=== PATIENT | male | born 1960 | race Caucasian/White ===

== ENCOUNTER 2020-08-16 19:00 | Emergency (ER) | payer OTHER, SELFPAY ==
[2020-08-16 19:06] VITALS: BP 138/111; PULSE 94; RESP 16; TEMP 37.3; O2SAT 98
--- NOTE | 2020-08-16 19:11 | ED.ALLEREA ---
HPI - Allergic Reaction General Chief complaint: Allergic Reaction Stated complaint: Alergic Reaction Time Seen by Provider: 08/16/20 19:11 Source: patient Mode of arrival: ambulatory Limitations: no limitations History of Present Illness HPI narrative: Kyle Jean is a 59 yo male with a PMH of heavy smoking, myalgias, who comes to [facility] with allergic reaction to new drugs given at her PCP office today he was given both meloxicam and Flexeril for muscle pain that he took around 2 PM and then laid down for a nap in the 6:00 when he woke up his lips were swollen. He has never had allergic reaction any drug is unsure if he is ever taken steroids before but will treat him with traditional medication for an allergic reaction Related Data Allergies Allergy/AdvReac Type Severity Reaction Status Date / Time No Known Allergies Allergy Verified 08/16/20 12:30 Review of Systems Review of Systems: Narrative: CONSTITUTIONAL: Denies fever, chills, sweats. EYES: Denies visual changes, redness, discharge. ENT: Denies rhinorrhea, congestion, sore throat, otalgia. CARDIOVASCULAR: Denies chest pain, palpitations, edema. RESPIRATORY: Denies dyspnea, wheezing, cough-allergic reaction to new prescriptions GASTROINTESTINAL: Denies abdominal pain, nausea, vomiting, diarrhea. GENITOURINARY: Denies dysuria, hematuria, abnormal discharge SKIN: Denies rash or itching. NEUROLOGIC: Denies numbness, or focal weakness. PSYCHIATRIC: Denies anxiety or depression. REPLACED BY [facility] Past Medical History Medical History Anxiety BMI 31.0-31.9,adult Chronic left shoulder pain Degenerative cervical disc Dietary counseling and surveillance (04/06/17) Encounter for screening for lipoid disorders Encounter for screening for malignant neoplasm of prostate Encounter for smoking cessation counseling Other chronic pain Pain of both shoulder joints Primary osteoarthritis of left knee Screening for colon cancer Screening for diabetes mellitus Screening for thyroid disorder Family History Family History Father Family history of malignant neoplasm Mother Sibling No problems noted. Social History Social History Tobacco type: cigarettes Alcohol intake: former Substance use: never Substance use type: does not use Additional occupation/education comments: [employer] Gender identity (if verbalized by the patient): Male Comments At time of signature, I agree with nursing past medical, surgical, social and family history. There is no relevant family history pertinent to the presenting complaint. Blood pressure is elevated probably due to situation that brought him to [facility], he saw his PCP today and will return tomorrow Exam Narrative: Exam Narrative: GENERAL: This is a well-nourished, well-developed patient, in mild distress. HEAD: normocephalic, atraumatic. EYES:Sclera clear/white. Vision is grossly intact. EARS: External ears normal, Hearing grossly intact. NOSE: External nose normal without nasal discharge, nares without redness, no rhinorrhea. Mouth-lip swollen. Posterior pharynx normal with no tongue swelling THROAT: Mucous membranes moist, NECK: Neck supple, non-tender CARDIOVASCULAR: Regular rate and rhythm without murmurs, gallops, or rubs. RESPIRATORY: Clear to auscultation. Breath sounds equal bilaterally. No wheezes, rales, or rhonchi. GASTROINTESTINAL: Abdomen soft, SKIN: warm, intact with no suspicious lesions or rash, good texture and turgor. NEURO: awake, alert, and oriented to person, place and time. There were no obvious focal neurologic abnormalities. Steady gait EXTREMITIES: Normal range of motion. BACK: Nontender without deformity Course Course Emergency Course: Patient comes to [facility] with allergic reaction to new drug scr
[2020-08-16] MEDS: FAMOTIDINE 20 MG TABLET PO (19:25)
[2020-08-16] MEDS: methylPREDNISolone SOD SUCC 125 MG VIAL IM (19:25)
== END 2020-08-16 19:40 | disposition home or self-care (01) ==
PROVIDERS: Emergency Provider Nurse Practitioner; PCP Family Medicine
DX: R22.0 Localized swelling, mass and lump, head (principal); T50.905A Adverse effect of unspecified drugs, medicaments and biological substances, initial encounter; Z87.891 Personal history of nicotine dependence; M17.12 Unilateral primary osteoarthritis, left knee
CPT/HCPCS: 96372; 99212; A9270; G0463; J2930

== ENCOUNTER 2020-11-22 15:32 | Outpatient (CLI) | payer OTHER, SELFPAY ==
--- NOTE | ~2020-11-22 | CT_ITS ---
EXAMINATION: CT abdomen pelvis w con DATE: 11/22/2020 15:56 INDICATION: Left lower quadrant abdominal pain. TECHNIQUE: Computed tomography (CT) of the abdomen and pelvis was performed with 100 mL Omnipaque 350 intravenous contrast. Automated exposure control and iterative reconstruction technique were employe d. The dose-length product was 1465.59 mGy-cm. COMPARISON: None. FINDINGS: The visualized portions of the lung bases is a minimal atelectasis. No pleural effusion. Th e heart size is normal. No pericardial effusion. There are cysts in the liver measuring up to 1.9 cm. There is a gallstone in the gallbladder, which is normal in size. There is a small sliding hiatal he rnia. The spleen, pancreas, adrenal glands, and left kidney are normal. There is a 1.1 cm cyst in rig ht kidney. There is a 1.6 cm mass in right kidney measuring soft tissue attenuation. There are no dil ated loops of bowel. There is fat stranding around diverticula of the sigmoid colon, consistent with diverticulitis. The appendix is not visualized. There are no pathologically enlarged lymph nodes. The re is no free intraperitoneal fluid. There is severe lumbar spondylosis.. IMPRESSION: 1. Acute sigmoid diverticulitis. No perforation or drainable abscess. 2. 1.6 cm right kidney mass, which may be a hemorrhagic cyst or less likely a neoplasm. Abdomen CT or MRI without and with contrast is recommended. Reviewed, dictated and finalized at location A. IMPRESSION: 1. Acute sigmoid diverticulitis. No perforation or drainable abscess. 2. 1.6 cm right kidney mass, which may be a hemorrhagic cyst or less likely a n eoplasm. Abdomen CT or MRI without and with contrast is recommended.
[2020-11-22 15:52] LABS: Estimated Glomerular Filt Rate > 60
[2020-11-22 16:28] LABS: Basophils Absolute Auto 0.1 K/mm3 (0.0-0.1); Basophils Percent Auto 0.4 % (0.2-1.2); Eosinophils Absolute Auto 0.2 K/mm3 (0-0.3); Eosinophils Percent Auto 0.9 % (0-4.4); Hematocrit 42.3 % (42.0-52.0); Hemoglobin 14.3 g/dL (14.0-18.0); Immature Granulocyte Absolute 0.07 K/mm3 (0.00-0.031); Immature Granulocyte Percent A 0.4 % (0-0.5); Lymphocytes Absolute Auto 3.63 K/mm3 (0.9-3.2); Lymphocytes Percent Auto 21.9 % (18.3-44.2); Mean Corpuscular HGB Conc 33.8 g/dl (32-36); Mean Corpuscular Hemoglobin 29.7 pg (26-34); Mean Corpuscular Volume 87.8 fl (80-100); Mean Platelet Volume 10.8 fl (7.4-10.4); Monocytes Absolute Auto 1.7 K/mm3 (0.1-0.6); Monocytes Percent Auto 10.1 % (2.6-8.5); Neutrophils Percent Auto 66.3 % (45.5-73.1); Platelet Count Result 249 k/mm3 (150-375); Red Blood Count 4.82 M/mm3 (4.6-6.20); Red Cell Distribution Width 13.7 % (11.5-14.5); White Blood Count 16.6 K/mm3 (4.5-10.0)
[2020-11-22 16:30] LABS: Alanine Aminotransferase 23 U/L (4-50); Albumin Level 4.3 g/dL (3.5-5.1); Alkaline Phosphatase 63 U/L (38-126); Amylase 64 U/L (30-110); Anion Gap 8 mmol/L (8-16); Aspartate Amino Transferase 24 U/L (17-59); Blood Urea Nitrogen 12 mg/dL (9-20); Calcium 9.3 mg/dL (8.4-10.2); Carbon Dioxide 28 mmol/L (22-30); Chloride 103 mmol/L (98-107); Estimated Glomerular Filt Rate > 60; Glucose 106 mg/dL (65-110); Lipase 47 U/L (23-300); Potassium 4.2 mmol/L (3.4-5.0); Sodium 139 mmol/L (137-145)
== END 2020-11-22 15:33 | disposition home or self-care (01) ==
PROVIDERS: PCP Family Medicine; Visit Provider Nurse Practitioner Family
DX: R10.814 Left lower quadrant abdominal tenderness (principal); R10.813 Right lower quadrant abdominal tenderness; K57.32 Diverticulitis of large intestine without perforation or abscess without bleeding; N28.89 Other specified disorders of kidney and ureter
CPT/HCPCS: 74177; 80053; 82150; 83690; 85025; Q9967

== ENCOUNTER 2022-03-29 15:54 | Outpatient (CLI) | payer OTHER, SELFPAY ==
--- NOTE | ~2022-03-29 | CT_ITS ---
EXAMINATION: CT lung screening DATE: 03/29/2022 16:17 INDICATION: Personal history of nicotine dependence, prior smoker with 75 pack year history TECHNIQUE: Computed tomography (CT) of the chest was performed without intravenous contrast. The dose -length product (DLP) was 218.60 mGy-cm. Automated exposure control and iterative reconstruction tech [employer] were employed. COMPARISON: 11/22/2020 FINDINGS: There is mild emphysema. The lungs are free of acute opacities. No pleural effusion or pneu mothorax. No suspicious pulmonary nodules are identified. No pathologically enlarged thoracic lymph n odes are identified. The heart size is normal. There is calcified coronary artery atherosclerosis. Cy sts of the liver measure up to 1.8 cm. There is moderate thoracic and severe lower cervical spondylos is. IMPRESSION: 1. Lung-RADS category 1: Negative. Continue annual screening with noncontrast low-dose chest CT in 12 months. Reviewed, dictated and finalized at location A. D AND ADOLESCENT PSYCHOLOGIST IMPRESSION: 1. Lung-RADS category 1: Negative. Continue annual screening with noncontrast l ow-dose chest CT in 12 months.
== END 2022-03-29 15:55 | disposition home or self-care (01) ==
PROVIDERS: PCP Family Medicine; Visit Provider Physician Assistant Medical
DX: Z12.2 Encounter for screening for malignant neoplasm of respiratory organs (principal); Z87.891 Personal history of nicotine dependence
CPT/HCPCS: 71271

== ENCOUNTER 2022-04-27 12:46 | Outpatient (RCR) | payer OTHER, SELFPAY | END 2022-06-08 14:55 | disposition home or self-care (01) | LOC: ANHDMC 12:46 | PROVIDERS: PCP Family Medicine; Visit Provider Family Medicine | DX: E11.65 Type 2 diabetes mellitus with hyperglycemia (principal); Z71.89 Other specified counseling | CPT/HCPCS: G0108 ==

== ENCOUNTER → 2023-02-06 11:15 | Outpatient (CLI) | payer OTHER, SELFPAY ==
--- NOTE | ~2023-02-06 | XR_ITS ---
XR lumbar spine 6V w bending DATE: 02/06/2023 13:28 INDICATION: Low back pain TECHNIQUE: Standing AP, lateral, flexion and extension lateral views COMPARISON: None FINDINGS: Slight dextroscoliosis of the lumbar spine. There is normal alignment of the lumbar spine w ith no instability on flexion or extension noted. There is moderate degenerative disc disease of the lumbar interspaces and severe degenerative disc di sease at L5-S1. No spondylolysis or spondylolisthesis. The lumbar pedicles are intact. No fracture or bone destructio n. The sacroiliac joints are intact. IMPRESSION: Moderate degenerative disc disease of the lumbar interspaces and severe degenerative disc disease at L5-S1 Reviewed, dictated and finalized at location A. IMPRESSION: Moderate degenerative disc disease of the lumbar interspaces and se silvia degenerative disc disease at L5-S1
--- NOTE | ~2023-02-06 | XR_ITS ---
XR knee RT min 4V DATE: 02/06/2023 13:28 INDICATION: Osteoarthritis of the TECHNIQUE: [place], standing AP, PA and lateral views COMPARISON: None FINDINGS: There is minimal periarticular spurring of the patella. There is mild loss of height of med ial compartment joint space. There is chondrocalcinosis. No fracture or dislocation or joint effusion. No radiopaque intra-articular loose body is evident. No periosteal reaction or bone destruction. IMPRESSION: Mild osteoarthritis Chondrocalcinosis Reviewed, dictated and finalized at location A.
--- NOTE | ~2023-02-06 | XR_ITS ---
XR knee LT min 4V 02/06/2023 13:28 Indication: Left knee arthritis Procedure: 4 views left knee Comparison: No prior studies for comparison. Findings: No fracture, subluxation or dislocation. No significant joint effusion. There is a left tot al knee arthroplasty. Prosthesis well seated. There is anatomic alignment. Impression: 1: No significant bone or joint abnormality. Reviewed, dictated and finalized at location L. Impression: 1: No significant bone or joint abnormality.
== END ==
PROVIDERS: PCP Family Medicine; Visit Provider Family Medicine
DX: M51.36 Other intervertebral disc degeneration, lumbar region (principal); M51.37 Other intervertebral disc degeneration, lumbosacral region; M17.11 Unilateral primary osteoarthritis, right knee
CPT/HCPCS: 72114; 73564

== ENCOUNTER 2023-03-07 14:45 | Outpatient (RCR) | payer OTHER, SELFPAY ==
--- NOTE | 2023-02-20 11:54 | OPREHPOC ---
Outpatient Therapy Plan of Care This is a Multidisciplinary Plan of Care that may contain components documented by all disciplines (PT, OT, and ST.) PT Problem 1 PT Problem #1 Knowledge Deficit PT Goal 1 Goal Pt to be IND with issued HEP. Target Visit 4 PT Problem 2 PT Problem #2 Pain PT Goal 1 Goal Pt to report back pain no greater than 3/10 in the last week. Target Visit 4 PT Goal 2 Goal Pt to report 75% improvement in overall symptoms. Target Visit 4 PT Problem 3 PT Problem #3 Impaired Range of Motion PT Goal 1 Goal pt to demonstrate active lumbar ROM without an increase in pain. Target Visit 4 PT Problem 4 PT Problem #4 Impaired Functional Mobil PT Goal 1 Goal Pt to be able to lift and carry 20lb box from ground level without an increase in pain Target Visit 4 PT Goal 2 Goal Pt to report being able to walk for 20 mins before an increase in back pain. Target Visit 4
--- NOTE | 2023-02-20 11:54 | PTOPEVAL1 ---
Assessment and note entered by Thao Day, PT, DPT Evaluation Information Assessment Status Evaluation Diagnosis low back pain and knee osteoarthritis Subjective Information Pt states he has a L TKA, has R knee arthritis, and severe DDD at L5-S1. Pt states most of his pain generates from the back, he states pain will shoot down his R leg. He states when his back goes out he lays down for 2-3 days, when it is mildly out he can still walk, there is just pain. He states his back goes out at least 1x/month. He states laying down almost always takes away his pain. Pt states his normal pain is a 4/10 and when it really goes out, it goes up to 11/10. Reported Pain Level Pain Score 4: Self Report Assessment PT Clinical Summary Kyle presents to therapy today for his initial evaluation with a diagnosis of low back pain. Today he demonstrates decreased active lumbar ROM in all directions limited by pain. He demonstrates a mild sway back posture and reports radicular pain. Skilled therapy services are indicated to improve ROM, strength, core strength, body mechanics, and to improve overall functional mobility. Plan of Care Interventions Electrical Stimulation,Gait Training,Hot Pack/Cold Pack,Manual Therapy,Neuro Re-education,Patient/ Caregiver Educati,Therapeutic Activities, Therapeutic Exercise PT Services Indicated Yes Treatment Frequency and 1x/wk for 4 visits Duration These treatments will address the objective and functional deficits as defined above. The patient will be advanced safely and appropriately in order for the patient to progress towards his/her prior level of function. Additional exercises will be introduced and as well as a comprehensive home exercise program upon discharge, if needed, ?to ensure carryover of functional gains achieved in the clinic. This treatment plan has been reviewed and agreement upon by the patient.
--- NOTE | 2023-04-10 13:34 | PTOPDC ---
Assessment and note entered by Thao Day, PT, DPT Evaluation Information Assessment Status Discharge - Pt Not Present Diagnosis low back pain and knee osteoarthritis Subjective Information Pt called and cancelled all of his appointments. He states his doctor told him he needed to wait until after cold and flu season to return to therapy. Pt told he will need a new order when he is ready to return. Assessment PT Clinical Summary Kyle completed 2 visits of skilled therapy from 02/20/23 to 03/07/23. He will be discharged at this time.
== END 2023-04-10 14:35 | disposition home or self-care (01) ==
LOC: ANHGOSHPT 14:45
PROVIDERS: PCP Family Medicine; Visit Provider Family Medicine
DX: M54.50 Low back pain, unspecified (principal); M17.9 Osteoarthritis of knee, unspecified
CPT/HCPCS: 97110; 97161; 97530

== ENCOUNTER 2023-04-07 08:18 | Outpatient (CLI) | payer OTHER, SELFPAY ==
--- NOTE | ~2023-04-07 | MR_ITS ---
EXAMINATION: MR lumbar spine wo con DATE: 04/07/2023 09:32 INDICATION: Other spondylosis with radiculopathy, lumbar region. Back pain. TECHNIQUE: Magnetic resonance imaging (MRI) of the lumbar spine was performed without intravenous con trast. Sequences included sagittal T2-weighted FSE, sagittal T2-weighted FS FSE, sagittal T1-weighted FSE, and axial T2-weighted FSE. COMPARISON: Lumbar spine radiographs 02/06/2023 FINDINGS: There is 6 degrees dextrocurvature of lumbar spine. Vertebral body heights are normal. Ther e is mildly decreased disc height at L1-L2 and L2-L3, moderately decreased disc height at L4-L5, and severely decreased disc height at L5-S1. The distal spinal cord signal intensity is normal. The conus medullaris is at L1-L2. The following disc levels are specifically discussed: L1-L2: The disc is bulging and has an annular fissure. There is moderate bilateral facet joint osteoa rthritis. There is mild bilateral neural foraminal stenosis. There is mild central canal stenosis. L2-L3: The disc is bulging and has an annular fissure. There is severe bilateral facet joint osteoart hritis. There is mild right and moderate left neural foraminal stenosis. There is mild central canal stenosis. L3-L4: The disc is bulging and has an annular fissure. There is severe bilateral facet joint osteoart hritis. There is mild bilateral neural foraminal stenosis. There is mild central canal stenosis. L4-L5: The disc is bulging and has an annular fissure. There is moderate bilateral facet joint osteoa rthritis. There is mild right and moderate left neural foraminal stenosis. There is mild central rafaela l stenosis. L5-S1: The disc is bulging and has an annular fissure. There is severe bilateral facet joint osteoart hritis. There is moderate bilateral neural foraminal stenosis. There is mild central canal stenosis. IMPRESSION: 1. Severe lower lumbar spondylosis. Reviewed, dictated and finalized at location E. CTOR PROCESS
== END 2023-04-07 08:19 | disposition home or self-care (01) ==
PROVIDERS: PCP Family Medicine; Visit Provider Family Medicine
DX: M47.27 Other spondylosis with radiculopathy, lumbosacral region (principal)
CPT/HCPCS: 72148

== ENCOUNTER 2023-05-13 08:24 | Outpatient (CLI) | payer OTHER, SELFPAY ==
--- NOTE | ~2023-05-13 | MR_ITS ---
MRI of the brain Clinical History: Head injury Technique: Axial and sagittal T1-weighted images were acquired. These were followed by axial T2-weigh emil, diffusion weighted, gradient, and FLAIR images. Findings: There is no acute infarct, intracranial hemorrhage, or mass lesion. There are minimal chron ic white matter changes in the periventricular white matter bilaterally. Ventricles and subarachnoid spaces are unremarkable. Orbits are unremarkable. Paranasal sinuses and m astoid air cells are clear. Major intracranial flow voids are intact. Sagittal midline structures are intact. IMPRESSION: No acute infarct, intracranial hemorrhage, or mass lesion. Minimal chronic microvascular ischemic changes. Reviewed, dictated and finalized at location M. S READER
== END 2023-05-13 08:25 | disposition home or self-care (01) ==
PROVIDERS: PCP Family Medicine; Visit Provider Family Medicine
DX: R41.3 Other amnesia (principal); F32.A Depression, unspecified; S09.90XS Unspecified injury of head, sequela; X58.XXXS Exposure to other specified factors, sequela
CPT/HCPCS: 70551

== ENCOUNTER 2024-05-30 13:29 | Outpatient (CLI) | payer MEDICARE, OTHER, SELFPAY ==
--- NOTE | ~2024-05-30 | PE_ITS ---
EXAMINATION: PET_PETPSMAST_PT DATE: 05/30/2024 15:54 INDICATION: Prostate cancer TECHNIQUE: 5.553 mCi of Illucix Ga-[id number]) was administered i.v. Low dose computed gisselle graphy (CT) images were acquired from the base of the brain to the base of the brain to the proximal thighs for attenuation correction and anatomic localization. Positron emission tomography (PET) image s were acquired in the same distribution beginning 92 minutes after injection. Images including fused PET/CT images were reconstructed in axial, coronal, and sagittal planes. Automated exposure control technique was employed. The dose-length product was 1222.42mGy-cm. COMPARISON: CT abdomen pelvis dated 11/22/2020 FINDINGS: Head/neck: Typical pattern of symmetric physiologic increased activity in the lacrimal, parotid and submandibula r glands as well as along the mucosa of the nasal and oral cavities, pharynx and hypopharynx. No path ologically enlarged cervical lymphadenopathy or suspicious foci of increased uptake in the visualized head or neck. Chest: Mild dependent atelectasis in the bilateral lower lobes with small regions of more lucent air trappin g related to small airway disease. No suspicious pulmonary nodules, pneumonia, pulmonary edema or ple ural effusion. Heart size is normal. Small amount of atherosclerotic coronary artery calcific lesion. No pericardial effusion. Thoracic aorta is normal in caliber. No pathologically enlarged or PSMA parveen d thoracic lymphadenopathy. Abdomen/pelvis/proximal thighs: Physiologic renal accumulation and excretion of activity in the kidneys, bladder and along portions o f ureters. 1.5 cm exophytic soft tissue density lesion at the posterior lower pole of the right kidne y. There is a focus of prominent increased uptake at the right side of the enlarged prostate with max imal SUV of 23. No significant change in a few hypodense hepatic cysts the largest measuring 1.6 cm a t the caudate lobe. Normal degree and slightly heterogenous pattern of increased uptake throughout th e liver and spleen without radiologic correlate or dominant PSMA avid lesion. Gallstone within the ot herwise normal-appearing gallbladder. The pancreas and bilateral adrenal glands are normal. Moderate uptake scattered throughout the bowels with typical duodenal and proximal jejunal predominance and wi thout radiologic correlate, also likely physiologic. No other abnormal foci of increased uptake or pa thologically enlarged lymphadenopathy in the abdomen, pelvis or proximal thighs. Musculoskeletal: Severe spondylosis in the lower cervical and lower lumbar spine with moderate intervening spondylosis . A couple small chronic sclerotic bone islands at the bilateral femoral heads. No interval change in a slightly larger and less dense sclerotic lesion at the right posterior iliac spine without PSMA up take most likely either an additional bone island, bone infarct or enchondroma. No other suspicious l ytic, blastic or PSA may avid bone lesions. IMPRESSION: 1. . Prominent increased uptake at the right side the enlarged prostate consistent with primary prost ate cancer. No lesions suspicious for metastatic disease. 2. No change in size of an 1.5 cm indeterminate exophytic soft tissue density lesion at the lower patel e the right kidney most likely a proteinaceous/hemorrhagic cyst however differential includes less li laverne renal cell carcinoma. 3. Cholelithiasis. Reviewed, dictated and finalized at [facility] IMPRESSION: 1. . Prominent increased uptake at the right side the enlarged prostate consist ent with primary prostate cancer. No lesions suspicious for metastatic disease. 2. No change in size of an 1.5 cm indeterminate exophytic soft tissue density l esion at the lower pole the right kidney most likely a proteinaceous/hemorrhagi c cyst however differential includes less likely renal cell carcinoma. 3. Cholelithiasis.
--- OUTSIDE RECORDS SUMMARY | 2024-05-30 13:35 | XMS_ITS | Clinical Summary ---
Author Organization [facility] Address [address] [place] [address] Phone Care Team Providers Care Physician Intensivist Name Role Phone Unavailable Primary Care Provider Unavailabl e Encounters Date Type Department Care Team Description 04/22/2024 External Device Data ST[facility] ABSTRACTION Provider, Abstract from Last 3 Months Immunizations Immunization Administration Dates Next Due (PREVNAR 20)(6 WKS UP) PNEUM OCOCCAL CONJUGATE VACCINE 20-VALENT (PCV20), POLYSACCHARIDE [id number] CONJUGATE, ADJUVANT 0.5 ML (PF) IM 03/28/2023 INFLUENZA VACCINE HIGH DOSE TRIVALENT SPLIT VIRUS, (65 YR UP), 0.5ML (PF), IM 01/12/2024 INFLUENZA VACCINE QUADRIVALENT 6 MOS UP PF IM Social History Tobacco Use Types Packs/Day Years Used Date Smoking Tobacco: Never Assessed Sex and Gender Information Value Date Recorded Sex Assigned at Not on file 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
--- OUTSIDE RECORDS SUMMARY | 2024-05-30 13:35 | XMS_ITS | Clinical Summary ---
Author Organization [facility] Address [address] [place] [address] Phone Care Team Providers Care Packer Inspector Name Role Phone Ravindra Garza MD Primary Care Provider [phone] Allergies Active Allergy Reactions Criticality Noted Date Comments Morphine Vomiting Medium 06/02/2015 Medications etodolac (LODINE) 400 MG Tablet Take 400 mg by mouth 2 times daily. Active acetaminophen (TYLENOL) 500 MG Tablet Take 2 Tabs by mouth every 6 hours as needed for Pain or Fever (for temperature greater than 100.4 F). Do not exceed 4000 mg of acetaminophen in 24 hour from all sources. 6 Active HYDROcodone-ac etaminophen (NORCO) 5-325 MG TabletIndicati ons:Moderate to Moderately Severe Pain Take 1-2 Tabs by mouth every 4 hours as needed for Pain. Indications: Moderate to Moderately Severe Pain 30 Tab 0 6 Active aspirin 325 MG Tablet Take 1 Tab by mouth daily. 100 Tab 3 6 Active diphenhydrAMIN E (BENADRYL) 50 MG Capsule Take 50 mg by mouth nightly as needed (Sleep). Active Multiple Vitamins-Stearns als (MULTIVITAMIN ADULT PO) Take 1 Tab by mouth daily. Active omeprazole (PRILOSEC) 20 MG CAPSULE DELAYED RELEASE Take 20 mg by mouth daily. Active LevOCARNitine L-Tartrate (L-CARNITINE) 500 MG Capsule Take 1 Tab by mouth 2 times daily. 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 Gender Identity Not on file Sexual Orientation Not on file Last Filed Vital Signs Vital Sign Reading Time Taken Comments Blood Pressure 150/86 06/16/2015 9:15 AM MEDICAL RECORDS SPECIALIST Pulse 102 06/16/2015 9:15 AM MEDICAL RECORDS SPECIALIST Temperature 36.4 C (97.6 F) 06/16/2015 9:15 AM MEDICAL RECORDS SPECIALIST Respiratory Rate 18 06/16/2015 9:15 AM MEDICAL RECORDS SPECIALIST Oxygen Saturation 93% 05/30/2015 8:43 AM MEDICAL RECORDS SPECIALIST Inhaled Oxygen Concentration - - Weight 110.7 kg (244 lb) 05/26/2015 5:59 PM MEDICAL RECORDS SPECIALIST Height 185.4 cm (6' 1 ) 06/16/2015 9:15 AM MEDICAL RECORDS SPECIALIST Body Mass Index 32.19 05/26/2015 5:59 PM MEDICAL RECORDS SPECIALIST Plan of Treatment Not on file Medical Devices Implanted Type Area Ice Cream Chef Device Identifier Shelf Expiration Date Model / Serial / Lot Triathlon Cr Fem Cpnt Beaded W/Pa - [id number] Implanted:Qty: 1 on 05/26/2015 by Chuy Duron MD at [facility] IMPLANT Left: Knee [employer] / [employer] 06/24/2019 5517-F-501 / / [id number] Triathlon Prim Tib Baseplt Beaded W/Pa - [id number] Implanted:Qty: 1 on 05/26/2015 by Chuy Duron MD at [facility] IMPLANT Left: Knee [employer] 09/24/2019 5526-B-[id number] / / [id number] Triathlon Cs Ins Sz5 9mm - [id number] Implanted:Qty: 1 on 05/26/2015 by Chuy Duron MD at [facility] IMPLANT Left: Knee [employer] 10/24/2019 5531-G-[id number] / / [id number] Triathlon - Asymmetric Metal Backed Patella Implanted:Qty: 1 on 05/26/2015 by Chuy Duron MD at [facility] IMPLANT Left: Knee [employer] 10/23/2018 [id number] / / [id number] Insurance Advance Directives * Full Code (Latest Code Status on File) Date Activated Date Inactivated Comments 06/04/2015 6:32 AM Care Teams Packer Inspector Relationship Specialty Start Date End Date Ravindra Garza MD PCP - General Internal Medicine 04/14/15
== END 2024-05-30 13:30 | disposition home or self-care (01) ==
PROVIDERS: PCP Family Medicine; Visit Provider Urology
DX: C61 Malignant neoplasm of prostate (principal); K80.20 Calculus of gallbladder without cholecystitis without obstruction
CPT/HCPCS: 78815; A9596